=== PATIENT | female | born 1965 | race Caucasian/White ===

== ENCOUNTER 2021-04-03 13:28 | Inpatient (IN) | payer OTHER, SELFPAY ==
[~2021-04-03] VITALS: Ht 160 cm; Wt 97.5 kg
--- NOTE | 2021-04-03 13:31 | NUR ---
Pt BIBA to bed 10 via [facility].
[2021-04-03 13:40] VITALS: BP 99/56
--- NOTE | 2021-04-03 14:14 | NUR ---
LAB AT BEDSIDE
[2021-04-03] MEDS ORDERED: NACL 0.9% 1,000 ML IV ONE ×3 (14:35→15:15)
[2021-04-03] MEDS ORDERED: KETOROLAC 15 MG/ML VIAL IVP ONE (14:35)
[2021-04-03 14:39] LABS: HEMATOCRIT 39.7 % (36-48); HEMOGLOBIN 12.9 g/dL (12.0-16.0); MEAN CORPUSCULAR HEMOGLOBIN 29 pg (27-31); MEAN CORPUSCULAR HGB CONC 32 g/dL (33-37); MEAN CORPUSCULAR VOLUME 88.6 fL (80-94); PLATELET COUNT (AUTO) 193 K/uL (140-450); RED BLOOD CELL COUNT(AUTO) 4.48 MIL/uL (4.20-5.40); RED CELL DISTRIBUTION WIDTH 14.3 % (11.6-13.7); WHITE BLOOD COUNT (AUTO) 8.3 K/uL (4.8-10.8)
--- NOTE | 2021-04-03 15:01 | NUR ---
55 Y/O F BIBA FROM WORK, [facility] REPORTS PT WAS COVID + ON 03/15/21, WAS AT WORK AND STARTED HAVING AN EPISODE OF VOMITING, WEAKNESS AND SOB. PT WAS INSTRUCTED TO LAY ON FLOOR BY [employer]ORKERS UNTIL [facility] ARRIVED. PT DENIES CHILLS. DENIES N/V/D; SKIN IS PINK/WARM/DRY; AAOX4 WITH EVEN AND STEADY GAIT; LUNGS SLIGHTLY WHEEZING BL; HR EVEN AND TACHY; PT DENIES ANY CP AT THIS TIME; PATIENT STATES PAIN OF 0/10 AT THIS TIME; PATIENT POSITIONED FOR COMFORT; HOB ELEVATED; BEDRAILS UP X2; BED DOWN. ER MD MADE AWARE OF PT STATUS. PMH: UTI, DM2 NKA
[2021-04-03 15:03] LABS: ALBUMIN 3.1 g/dL (3.4-5.0); ANION GAP 20.8 (8-16); CARBON DIOXIDE 18.8 mmol/L (21-32); CREATININE 1.1 mg/dL (0.6-1.3); POTASSIUM 3.6 mmol/L (3.5-5.1)
[2021-04-03 15:04] LABS: LYMPHOCYTES % (MANUAL) 5 % (20-46)
[2021-04-03] MEDS ORDERED: cefTRIAXone 1,000 MG VIAL ONE (15:06)
[2021-04-03 15:21] LABS: BILIRUBIN,URINE 1+ (NEGATIVE); BLOOD, URINE TRACE-I (NEGATIVE); LEUKOCYTE ESTERASE ,URINE TRACE (NEGATIVE); NITRITE, URINE NEGATIVE (NEGATIVE); PH,URINE 5.5 (5.0-9.0); UGLUCOSE 1+ (NEGATIVE)
[2021-04-03 15:25] LABS: APPEARANCE,URINE HAZY (CLEAR); COLOR,URINE AMBER (YELLOW)
[2021-04-03 15:34] LABS: RBC,URINE 0-5 /HPF (0-5)
--- NOTE | 2021-04-03 15:39 | NUR ---
NASH SWABBED AND SENT TO LAB
--- NOTE | 2021-04-03 16:17 | NUR ---
PT AMBULATED TO BATHROOM AT THIS TIME
[2021-04-03] MEDS ORDERED: ONDANSETRON 4 MG/2 ML VIAL IVP ONE (18:10)
[2021-04-03] MEDS ORDERED: MORPHINE SULFATE 4 MG/ML SYR IVP ONE (18:10)
[2021-04-03] MEDS ORDERED: ONDANSETRON 4 MG/2 ML VIAL ONE (18:14)
[2021-04-03] MEDS ORDERED: MORPHINE SULFATE 4 MG/ML SYR ONE (18:14)
--- NOTE | 2021-04-03 19:28 | NUR ---
REPORT RECEIVED FROM MARY DALEY FOR CONTINUATION OF PATIENT CARE.
--- NOTE | 2021-04-03 20:40 | NUR ---
PATIENT AMBULATED TO BATHROOM W STEADY GAIT.
--- NOTE | 2021-04-03 20:45 | NUR ---
US AT BEDSIDE.
--- NOTE | 2021-04-03 21:20 | NUR ---
Logan garcia in [facility] - 04/03/21 at 2213 by HAN CONSENT SIGNED FOR PATIENT TRANSFER TO ANOTHER FACILITY.
--- NOTE | 2021-04-03 21:20 | NUR ---
Note radha in ED[facility] - 04/03/21 at 2212 by HAN PATIENT LAYING IN BED LOCKED IN LOWEST POSITION W X2 SIDERAILS UP FOR PATIENT SAFETY. PATIENT REPORTS ONGOING SLIGHT DIZZYNESS, AND WEAKNESS. PATIENT ALSO REPORTS SLIGHT NAUSEA BUT DOES NOT WANT ANY MEDICATION FOR NAUSEA AT THIS TIME. PATIENT REPORTS PAIN IMPROVEMENT FROM HER R FLANK TO R ABDOMEN TO 3/10. PATIENT CONNECTED TO MONITOR W VSS. BREATHING EVEN AND UNLABORED. NAD NOTED, WILL CONTINUE TO MONITOR,
--- NOTE | 2021-04-03 21:20 | NUR ---
PATIENT LAYING IN BED LOCKED IN LOWEST POSITION W X2 SIDERAILS UP FOR PATIENT SAFETY. PATIENT REPORTS ONGOING SLIGHT DIZZYNESS, AND WEAKNESS. PATIENT ALSO REPORTS SLIGHT NAUSEA BUT DOES NOT WANT ANY MEDICATION FOR NAUSEA AT THIS TIME. PATIENT REPORTS PAIN IMPROVEMENT FROM HER R FLANK TO R ABDOMEN TO 3/10. DENIES SOB. PATIENT CONNECTED TO MONITOR W VSS. BREATHING EVEN AND UNLABORED. NAD NOTED, WILL CONTINUE TO MONITOR. CONSENT SIGNED FOR PATIENT TRANSFER TO ANOTHER FACILITY.
[2021-04-03] MEDS ORDERED: LACTATED RINGERS 1,000 ML IV ONE (21:30)
--- NOTE | 2021-04-03 22:06 | NUR ---
PATIENT SISTER AT BEDSIDE.
[2021-04-03] MEDS ORDERED: DEXT 5% / NACL 0.9% 500 ML IV ONE (22:35)
[2021-04-03] MEDS ORDERED: ZOLPIDEM 5 MG TAB PO PRN (23:40)
[2021-04-03] MEDS ORDERED: ONDANSETRON 4 MG/2 ML VIAL IM/IVP PRN (23:40)
[2021-04-03] MEDS ORDERED: POTASSIUM CHLORIDE 10 MEQ TABER PO PRN (23:40)
[2021-04-03] MEDS ORDERED: HYDROcodone/APAP 7.5/325 MG 1 TAB PO PRN (23:40)
[2021-04-03] MEDS ORDERED: guaiFENesin DM 200/20 MG-10 ML 10 ML UDC PO PRN (23:40)
[2021-04-03] MEDS ORDERED: DOCUSATE SODIUM 100 MG GELCAP PO PRN (23:40)
[2021-04-03] MEDS ORDERED: MORPHINE SULFATE 2 MG/ML SYR IVP PRN (23:45)
[2021-04-03] MEDS ORDERED: LEVOFLOXACIN 750 MG/D5W PREMIX 150 ML IV SCH (23:45)
[2021-04-04 00:17] LABS: CHOL/HDL RATIO 2.9 (1-4.5); FREE T4 (FREE THYROXINE) 1.39 ng/dL (0.76-1.46); MAGNESIUM 1.5 mg/dL (1.8-2.4); PHOSPHORUS 2.1 mg/dL (2.5-4.9); THYROID STIMULATING HORMONE 1.13 uIU/mL (0.34-3.74)
--- NOTE | 2021-04-04 00:45 | NUR ---
PATIENT REPORTS PAIN 6/10 R FLANK/ABDOMEN.
[2021-04-04 01:12] LABS: PROTHROMBIN TIME 14.8 secs (10.8-13.4)
--- NOTE | 2021-04-04 02:00 | NUR ---
PATIENT LAYING IN BED LOCKED IN LOWEST POSITION W X2 SIDERAILS UP FOR PATIENT SAFETY. PATIENT AWAKE. PATIENT CONNECTED TO MONITOR W VSS. BREATHING EVEN AND UNLABORED. NAD NOTED, WILL CONTINUE TO MONITOR.
--- NOTE | 2021-04-04 02:25 | NUR ---
PATIENT REPORTING SHE IS UNABLE TO SLEEP. WOULD LIKE MEDICATION FOR SLEEPING.
--- NOTE | 2021-04-04 04:00 | NUR ---
PATIENT APPEARS TO BE RESTING W EYES CLOSED, LAYING SUPINE IN BED. BREATHING EVEN AND UNLABORED. BED LOCKED IN LOWEST POSITION W X2 SIDERAILS UP. VSS. NAD NOTED, WILL CONTINUE TO MONITOR.
--- NOTE | 2021-04-04 06:10 | NUR ---
PATIENT LAYING IN BED IN L LATERAL POSITION W X2 SIDERAILS UP FOR PATIENT SAFETY. PATIENT REPORTS 6/10 PAIN, PATIENT ALSO HAS A FEVER OF 102.0. COOLING MEASURES INITIATED WITH ICE PACKS, AND REMOVAL OF WARM BLANKETS. BREATHING EVEN AND UNLABORED. PATIENT ON MONITOR W VSS.
[2021-04-04] MEDS: ACETAMINOPHEN 325 MG TAB PO PRN ×2 (06:37→12:30)
--- NOTE | 2021-04-04 06:52 | NUR ---
PATIENT AMBULATED TO BATHROOM W STEADY GAIT.
[2021-04-04 07:08] LABS: BASOPHILS % (AUTO) 0.3 % (0.0-2.0); EOSINOPHILS # (AUTO) 0.1 K/uL (0-0.4); EOSINOPHILS % (AUTO) 0.8 % (0.0-4.0); HEMATOCRIT 36.5 % (36-48); LYMPHOCYTES # (AUTO) 0.5 K/uL (2.5-16.5); LYMPHOCYTES % (AUTO) 4.5 % (20.5-51.1); MEAN CORPUSCULAR HEMOGLOBIN 29 pg (27-31); MEAN CORPUSCULAR HGB CONC 33 g/dL (33-37); MEAN CORPUSCULAR VOLUME 88.5 fL (80-94); MONOCYTES # (AUTO) 0.7 K/uL (0.8-1.0); MONOCYTES % (AUTO) 6.7 % (1.7-9.3); NEUTROPHILS # (AUTO) 9.2 K/uL (1.8-7.7); NEUTROPHILS % (AUTO) 87.7 % (42.2-75.2); PLATELET COUNT (AUTO) 131 K/uL (140-450); RED BLOOD CELL COUNT(AUTO) 4.12 MIL/uL (4.20-5.40); WHITE BLOOD COUNT (AUTO) 10.5 K/uL (4.8-10.8)
--- NOTE | 2021-04-04 07:16 | NUR ---
Pt report given to MARY MILLER. Transfer of care at this time.
[2021-04-04] MEDS ORDERED: SIMV20TA1 PO (07:20)
[2021-04-04] MEDS ORDERED: METF-350 PO (07:20)
[2021-04-04] MEDS ORDERED: LISI-486 PO (07:20)
[2021-04-04] MEDS ORDERED: CEPH250C16 PO (07:20)
--- NOTE | 2021-04-04 07:29 | NUR ---
Received report from Mariana HERNANDEZ. Assumed care at this time.
--- NOTE | 2021-04-04 07:31 | NUR ---
Patient appears to be resting with eyes closed, on bedside cardiac tech. All needs met at this time.
[2021-04-04 07:42] LABS: ANION GAP 14.6 (8-16); CREATININE 0.8 mg/dL (0.6-1.3); POTASSIUM 3.6 mmol/L (3.5-5.1)
--- NOTE | 2021-04-04 07:51 | NUR ---
PATIENT HAS BEEN SCREENED AND CATEGORIZED LOW NUTRITION RISK. PATIENT WILL BE SEEN WITHIN 7 DAYS OF ADMISSION. 04/10/[address]
[2021-04-04] MEDS: PANTOPRAZOLE 40 MG TABEC PO SCH (10:09)
--- NOTE | 2021-04-04 10:31 | NUR ---
Patient will be admitted to care of Dr. Eli. Admited to TELE. Will go to room 106A. Belongings list completed. Report to Reema.
--- NOTE | 2021-04-04 10:35 | NUR ---
DR. LOPEZ AWARE PT ADMITTED IN TELE
--- NOTE | 2021-04-04 10:36 | NUR ---
RECEIVED PATIENT FROM ER. PATIENT ALERT & ORIENTED. SKIN WARM & INTACT. ON ROOM AIR. ABDOMEN SOFT NO PAIN. LAST BM LAST NIGHT. COMPLAIN OF RIGHT FLANK PAIN 4/10. NO NAUSEA/VOMITING. CALL LIGHT WITHIN REACH.
[2021-04-04 10:59] VITALS: BP 119/57
--- NOTE | 2021-04-04 11:27 | NUR ---
DR. OROZCO AWARE OF PT CONDITION.
[2021-04-04] MEDS: AMPICILLIN/SULBACTAM 3 GM in NACL 0.9% 100 ML IV SCH ×2 (12:00→18:20)
--- NOTE | 2021-04-04 12:24 | NUR ---
PATIENT ABLE TO AMBULATE GOING TO THE BATHROOM, US TECH AT BEDSIDE, WILL DO CAROTID ULTRASOUND
--- NOTE | 2021-04-04 12:36 | NUR ---
RECEIVED A CALL FROM [facility] REGARDING PT CONDITION, AWARE OF THE TRANSVAGINAL ULTRASOUND, PER [facility] ITS ALREADY AN EXCITING CONDITION
--- NOTE | 2021-04-04 12:39 | NUR ---
RELAYED TO MD MAGNESIUM LEVEL, WAITING FOR ORDER
--- NOTE | 2021-04-04 12:50 | NUR ---
RECEIVED REPORT FROM ORLANDO SAMUELS
[2021-04-04] MEDS ORDERED: MAG SULF 2000 MG/WATER PREMIX 50 ML IV PRN (13:00)
--- NOTE | 2021-04-04 13:30 | NUR ---
DUE IV ATB GIVEN. TEMP 101.3, TYLENOL GIVEN, COOLING MEASURES RENDERED
--- NOTE | 2021-04-04 13:45 | NUR ---
ORTHOSTATIC BP TAKEN. LYING 120/72, SITTING 116/70, STANDING 118/64
--- NOTE | 2021-04-04 15:20 | NUR ---
ASLEP IN BED, NO C/O PAIN, NO SOB
[2021-04-04 16:00] VITALS: BP 118/57
--- NOTE | 2021-04-04 18:24 | NUR ---
PT IN BED, FAMILY AT BEDSIDE. NO C/O PAIN, NO SOB
--- NOTE | 2021-04-04 19:10 | NUR ---
RECD. RESTING IN BED, AWAKE, A/OX4. RESPIRATION EVEN AND UNLABORED. LUNGS CLEAR ON BILATERAL LUNG AUSCULTATION. IV OF NS INFUSING AT 10 ML/HR AT THE LEFT AC G20. CONVERSING WITH VISITOR AT THE BEDSIDE. INDEPENDENT, AMBULATORY TO THE BR. DENIES PAIN 0/10.
--- NOTE | 2021-04-04 19:55 | NUR ---
WITH UNPRODUCTIVE COUGHING, MEDICATED WITH ROBITUSSIN PER MD ORDER.
[2021-04-04 20:00] VITALS: BP 136/74
--- NOTE | 2021-04-04 20:00 | NUR ---
Patient's Plan of Care was discussed and reviewed with SUPPLIER QUALITY MANAGER: FRANCISCO J BRADSHAW
--- NOTE | 2021-04-04 20:55 | NUR ---
NO COUGHING NOTED, RESTING COMFORTABLY IN BED.
--- NOTE | 2021-04-04 21:00 | NUR ---
AMBULATED TO BR TO VOID, BACK TO BED AFTER VOIDING. CONTINUE WATCHING TV.
[2021-04-04] MEDS: DOXYCYCLINE 100 MG in DEXTROSE 5% 100 ML IV SCH (22:32)
[2021-04-05] VITALS: BP 134/57
[2021-04-05] MEDS: DEXT 5% /NACL 0.9% 1,000 ML IV SCH ×2 (00:32→11:30)
--- NOTE | 2021-04-05 00:32 | NUR ---
NPO PAST MIDNIGHT. NEW IV D5 NS AT 80 ML/HR STARTED.
[2021-04-05] MEDS: AMPICILLIN/SULBACTAM 3 GM in NACL 0.9% 100 ML IV SCH ×3 (00:48→11:51)
[2021-04-05] MEDS: ACETAMINOPHEN 325 MG TAB PO PRN ×2 (01:56→14:55)
--- NOTE | 2021-04-05 01:56 | NUR ---
WITH HEADACHE, 02/17. MEDICATED WITH TYLENOL PER MD ORDER.
--- NOTE | 2021-04-05 02:55 | NUR ---
RESTING COMFORTABLY SLEEPING IN BED, NO APPEARANCE OF PAIN OR DISCOMFORT NOTED 0/10.
[2021-04-05 04:00] VITALS: BP 132/53
--- NOTE | 2021-04-05 05:00 | NUR ---
ASSISTED TO GO TO BR TO VOID, BACK TO BED AFTER VOIDING, MADE COMFORTABLE IN BED WITH BLANKETS.
[2021-04-05 05:50] LABS: BASOPHILS % (AUTO) 0.2 % (0.0-2.0); EOSINOPHILS # (AUTO) 0.1 K/uL (0-0.4); EOSINOPHILS % (AUTO) 0.9 % (0.0-4.0); HEMATOCRIT 33.5 % (36-48); HEMOGLOBIN 11.2 g/dL (12.0-16.0); LYMPHOCYTES # (AUTO) 0.8 K/uL (2.5-16.5); MEAN CORPUSCULAR HEMOGLOBIN 29 pg (27-31); MEAN CORPUSCULAR HGB CONC 34 g/dL (33-37); MEAN CORPUSCULAR VOLUME 87.5 fL (80-94); MONOCYTES # (AUTO) 1.2 K/uL (0.8-1.0); NEUTROPHILS # (AUTO) 8.5 K/uL (1.8-7.7); PLATELET COUNT (AUTO) 144 K/uL (140-450); RED BLOOD CELL COUNT(AUTO) 3.83 MIL/uL (4.20-5.40); RED CELL DISTRIBUTION WIDTH 14.8 % (11.6-13.7); WHITE BLOOD COUNT (AUTO) 10.6 K/uL (4.8-10.8)
[2021-04-05 06:51] LABS: CARBON DIOXIDE 27.8 mmol/L (21-32); CREATININE 0.7 mg/dL (0.6-1.3)
[2021-04-05 06:54] LABS: LYMPHOCYTES % (AUTO) 7.6 % (20.5-51.1); MONOCYTES % (AUTO) 11.4 % (1.7-9.3); NEUTROPHILS % (AUTO) 79.9 % (42.2-75.2)
[2021-04-05 07:06] LABS: ANION GAP 11.9 (8-16)
--- NOTE | 2021-04-05 07:25 | NUR ---
CONDITION REMAIN STABLE. ENDORSED TO AM SHIFT NURSE FOR CONTINUITY OF CARE.
--- NOTE | 2021-04-05 07:26 | NUR ---
RECEIVED BEDSIDE REPORT FROM MOBILE CRANE OPERATOR NURSE FRANCISCO J LI, PT RESTING, NO DISTRESS NOTED, AAOX4, AWAKE ALERT ABLE TO LET NEEDS KNOWN, IV TO R AC 20G PATENT INTACT INFUSING WELL. PT ON ROOM AIR, NO SOB NOTED, INITIAL ASSESSMENT DONE ALL SAFETY PRECAUTION MET, CALL LIGHT WITHIN REACH, WILL CONTINUE TO MONITOR.
[2021-04-05 07:29] LABS: POTASSIUM 2.7 mmol/L (3.5-5.1)
[2021-04-05] MEDS ORDERED: INSULIN LISPRO SLIDING SCALE 100 UNITS/ML VIAL SUBQ PRN (07:55)
[2021-04-05] MEDS ORDERED: DEXTROSE 50% 50 ML SYR IVP PRN (07:55)
[2021-04-05] MEDS ORDERED: POTASSIUM CHLORIDE 40 MEQ, LIDOCAINE MPF 1% 25 MG in NACL 0.9% 250 ML IV PRN (07:55)
[2021-04-05 08:00] VITALS: BP 132/68
[2021-04-05 08:07] LABS: T4 (THYROXINE) 9.6 ug/dL (4.5-12.0)
[2021-04-05] MEDS: PANTOPRAZOLE 40 MG TABEC PO SCH (08:40)
[2021-04-05] MEDS: DOXYCYCLINE 100 MG in DEXTROSE 5% 100 ML IV SCH (08:40)
--- NOTE | 2021-04-05 11:50 | NUR ---
TALK TO [employer] POCKET CREASER ESPERANZA REGARDING PT STATUS.
[2021-04-05] MEDS: BLOOD GLUCOSE MONITORING 1 DEV DEV FS SCH ×2 (11:54→17:21)
[2021-04-05 12:00] VITALS: BP 132/69
[2021-04-05] MEDS ORDERED: NACL 0.9% 1,000 ML IV SCH (12:25)
--- NOTE | 2021-04-05 12:30 | NUR ---
RECEIVED PHONE CALL FROM ESPERANZA WARD BOAT OPERATOR, WAS REQUESTED TO FAX PROGRESS NOTE FROM DR. LOPEZ, FAXED PROGRESS NOTE AWAITING CALL BACK.
--- NOTE | 2021-04-05 13:36 | NUR ---
SPOKE TO [employer] [employer]OWER[employer]SE MECHANIC SHASHANK, STATED THEY ARE LOOKING FOR ADMITTING DR FOR PT CURRENTLY WILL CALL AND UPDATE WITH ANY CHANGES, ALSO WILL FAX DOCUMENTATION TO BE FILLED OUT.
--- NOTE | 2021-04-05 14:10 | NUR ---
PT IV INFILTRATED, TAKEN OUT, CATH INTACT, IV TO R HAND 22G INSERTED, PT TOLERATED WELL, WILL CONTINUE TO MONITOR.
--- NOTE | 2021-04-05 14:56 | NUR ---
PT TEMPERATURE 100.4, PT SHIVERING, TYLENOL PER PRN ORDER ADMINISTERED, PT TOLERATED WELL, WILL CONTINUE TO MONITOR.
--- NOTE | 2021-04-05 16:10 | NUR ---
RECEIVED PHONE CALL FROM SHASHANK REGARDING TRANSFER, PER SHASHANK PT IS GOING TO BE TRANSFERRED TO [facility] SUR[facility] ROOM 4016, WITH DR NI. PHONE NUMBER TO CALL [phone]. DUMPER BULK SYSTEM TIME @ 0640.
[2021-04-05 16:30] VITALS: BP 132/69
--- NOTE | 2021-04-05 16:45 | NUR ---
CALLED ED MAGDALENO TO GIVE REPORT FOR PT, SPOKE WITH EDIS HERNANDEZ. ALL QUESTIONS ANSWERED.
--- NOTE | 2021-04-05 18:14 | NUR ---
PATIENT LEFT UNIT VIA GURNEY, STABLE, PICKED UP BY [facility]. IV INTACT R HAND 22G.
== END 2021-04-05 18:15 | disposition short-term general hospital (02) | DRG 872 ==
LOC: MED 13:28 → MTU 22:37 → MMU 04-04 12:55
PROVIDERS: ADMIT Family Medicine; ATTEND Family Medicine
DX: A41.9 Sepsis, unspecified organism (principal); E44.1 Mild protein-calorie malnutrition; N39.0 Urinary tract infection, site not specified; E11.9 Type 2 diabetes mellitus without complications; I10 Essential (primary) hypertension; E78.5 Hyperlipidemia, unspecified; E83.42 Hypomagnesemia; E83.39 Other disorders of phosphorus metabolism; E78.00 Pure hypercholesterolemia, unspecified; N85.00 Endometrial hyperplasia, unspecified; N70.93 Salpingitis and oophoritis, unspecified; N83.202 Unspecified ovarian cyst, left side; N83.201 Unspecified ovarian cyst, right side; Z20.822 Contact with and (suspected) exposure to COVID-19; Z68.38 Body mass index [BMI] 38.0-38.9, adult
CPT/HCPCS: 36415; 71045; 71275; 76830; 80048; 80053; 81001; 82150; 82948; 83036; 83605; 83690; 83735; 83880; 84100; 84436; 84439; 84443; 84479; 84484; 85025; 85610; 85730; 87040; 87081; 87086; 93880; 96361; 96365; 96375; 99291; J0295; J0696; J1885; J1956; J2001; J2270; J2405; J3475; J3480; J3490; J7030; J7060; Q0092; Q9967